=== PATIENT | female | born 1945 | race Caucasian/White ===

== ENCOUNTER 2020-12-22 19:18 | Inpatient (IN) | payer MEDICARE ==
[2020-12-22 20:11] LABS: #Eosinphils 0.1 thou/uL (0.0-0.7); #Lymphocytes 1.6 thou/uL (1.20-3.40); #Monocytes 0.7 thou/uL (0.11-0.59); #Neutrophils 2.1 thou/uL (1.40-6.50); %Basophils 0.6 % (0.0-1.0); %Eosinophils 1.8 % (0.0-10.0); %Lymphocytes 35.7 % (21.0-51.0); %Monocytes 14.8 % (0.0-10.0); %Neutrophils 47.1 % (42.0-75.0); Hemoglobin 14.1 g/dL (12.0-16.0); Mean Corpuscular HGB CONC 34.7 g/dL (32.0-36.0); Mean Corpuscular Hemoglobin 29.6 pg (27.0-31.0); Mean Corpuscular Volume 85.3 fL (78.0-98.0); Mean Platelet Volume 8.7 fL (7.4-10.4); Platelet Count 176 thou/uL (130-400); RBC Distribution Width 12.6 % (11.5-14.5); Red Blood Cell (RBC) Count 4.77 mill/uL (4.20-5.40); White Blood Cell (WBC) Count 4.5 thou/uL (4.8-10.8)
--- NOTE | 2020-12-22 20:14 | RAD ---
CHEST ONE VIEW: 12/22/20 HISTORY: Syncopal episode with fall. COMPARISON: 12/05/20 exam. Heart size within normal limits. There are atherosclerotic changes of the aorta. The lungs are clear of any infiltrates. No rib fractures identified. IMPRESSION: No active intrathoracic disease. POS: RICARDO
[2020-12-22 20:56] LABS: CKMB 1.5 ng/mL (0-6.6)
[2020-12-22 21:16] LABS: Bilirubin Negative (Negative); Blood, Urine Negative (Negative); Clarity Clear (Clear); Glucose, Urine (Dipstick) Normal (Negative); Ketone, Urine Negative (Negative); Leukocyte Negative Leu/uL (Negative); Nitrite Negative (Negative); Protein, Urine (Dipstick) 10 mg/dL (Neg-Trace); Specific Gravity, Urine 1.007 (1.002-1.036); Urobilinogen Normal mg/dL (Less than 2); pH, Urine 6.5 (5.0-9.0)
[2020-12-22 21:18] LABS: ALT (SGPT) 43 U/L (8-55); AST (SGOT) 37 U/L (5-34); Alkaline Phosphatase 110 U/L (40-110); Anion Gap 19 mmol/L (10-20); BUN (Urea Nitrogen) 22 mg/dL (9.8-20.1); Bilirubin, Total 0.8 mg/dL (0.2-1.2); CK (CPK) 67 U/L (29-168); Calc. Creatinine Clearance 0 mL/min (70-130); Calcium 9.4 mg/dL (7.8-10.44); Carbon Dioxide 34 mmol/L (23-31); Chloride 79 mmol/L (98-107); Globulin 3.1 g/dL (2.4-3.5); Glucose 127 mg/dL (83-110); Protein, Total 7.2 g/dL (5.8-8.1); Sodium 129 mmol/L (136-145)
[2020-12-22] MEDS ORDERED: Lorazepam 2 MG/ML VIAL ONE (21:30)
[2020-12-22] MEDS ORDERED: Potassium Chloride 20 MEQ TAB ONE (21:58)
[2020-12-22 23:54] LABS: Troponin I 0.094 ng/mL (< 0.028)
[2020-12-23] MEDS ORDERED: Potassium Chloride 20 MEQ TAB PO SCH (01:00)
--- NOTE | 2020-12-23 07:18 | PDOC.HHP ---
Hospitalist [facility] History of Present Illness: This is a 75-year-old female patient with a history of cholecystitis, who presents with falls and near syncope with hypotension. She was brought in from [facility] where she was discharged today. Of note patient was recently admitted here and discharged to [facility]. Patient had no complaints at the time of evaluation. She was oriented only to self however was not in acute distress. At presentation her blood pressure was 177/87, pulse 72, respirate 20, temperature 98.4 and saturation 94 on room air. Urinalysis was generally negative. Sodium was 129, potassium was 3.0, creatinine was 1.45, glucose 127 troponin was 0.18. WBC showed leukocytosis of 12.5 otherwise unremarkable. She received potassium chloride 20 mEq normal saline 1 L and Ativan. Arrangements were being made to have her transition to rehab however she cannot be seen but because she was recently discharged and needed to be reprocessed. Decision was made for her to be admitted and replaced. Allergies/Adverse Reactions: Allergy/AdvReac Type Severity Reaction Status Date / Time No Known Drug Allergies Allergy Unverified 12/23/20 00:53 Past History: PMHx: PSHx: FHx: Social: Hospitalist Results Result Diagrams: 12/22/20 20:00 12/22/20 20:00 Lab results: Laboratory Last Values WBC 4.5 thou/uL (4.8-10.8) L 12/22/20 20:00 RBC 4.77 mill/uL (4.20-5.40) 12/22/20 20:00 Hgb 14.1 g/dL (12.0-16.0) 12/22/20 20:00 Hct 40.7 % (36.0-47.0) 12/22/20 20:00 MCV 85.3 fL (78.0-98.0) 12/22/20 20:00 MCH 29.6 pg (27.0-31.0) 12/22/20 20:00 MCHC 34.7 g/dL (32.0-36.0) 12/22/20 20:00 RDW 12.6 % (11.5-14.5) 12/22/20 20:00 Plt Count 176 thou/uL (130-400) 12/22/20 20:00 MPV 8.7 fL (7.4-10.4) 12/22/20 20:00 Neutrophils % 47.1 % (42.0-75.0) 12/22/20 20:00 Lymphocytes % 35.7 % (21.0-51.0) 12/22/20 20:00 Monocytes % 14.8 % (0.0-10.0) H 12/22/20 20:00 Eosinophils % 1.8 % (0.0-10.0) 12/22/20 20:00 Basophils % 0.6 % (0.0-1.0) 12/22/20 20:00 Neutrophils # 2.1 thou/uL (1.40-6.50) 12/22/20 20:00 Lymphocytes # 1.6 thou/uL (1.20-3.40) 12/22/20 20:00 Monocytes # 0.7 thou/uL (0.11-0.59) H 12/22/20 20:00 Eosinophils # 0.1 thou/uL (0.0-0.7) 12/22/20 20:00 Basophils # 0.0 thou/uL (0.0-0.2) 12/22/20 20:00 Sodium 129 mmol/L (136-145) L 12/22/20 20:00 Potassium 3.0 mmol/L (3.5-5.1) L 12/22/20 20:00 Chloride 79 mmol/L (98-107) L 12/22/20 20:00 Carbon Dioxide 34 mmol/L (23-31) H 12/22/20 20:00 Anion Gap 19 mmol/L (10-20) 12/22/20 20:00 BUN 22 mg/dL (9.8-20.1) H 12/22/20 20:00 Creatinine 1.45 mg/dL (0.6-1.1) H 12/22/20 20:00 Estimated GFR (MDRD) 35 12/22/20 20:00 Glucose 127 mg/dL (83-110) H 12/22/20 20:00 Lactic Acid 1.5 mmol/L (0.5-2.2) 12/22/20 20:33 Calcium 9.4 mg/dL (7.8-10.44) 12/22/20 20:00 Total Bilirubin 0.8 mg/dL (0.2-1.2) 12/22/20 20:00 AST 37 U/L (5-34) H 12/22/20 20:00 ALT 43 U/L (8-55) 12/22/20 20:00 Alkaline Phosphatase 110 U/L (40-110) 12/22/20 20:00 Creatine Kinase 67 U/L (29-168) 12/22/20 20:00 CK-MB (CK-2) 1.5 ng/mL (0-6.6) 12/22/20 20:00 Troponin I 0.094 ng/mL (< 0.028) H 12/22/20 23:22 Serum Total Protein 7.2 g/dL (5.8-8.1) 12/22/20 20:00 Albumin 4.0 g/dL (3.4-4.8) 12/22/20 20:00 Globulin 3.1 g/dL (2.4-3.5) 12/22/20 20:00 Albumin/Globulin Ratio 1.3 g/dL (1.2-2.2) 12/22/20 20:00 Urine Color Colorless (Yellow) 12/22/20 20:44 Urine Clarity Clear (Clear) 12/22/20 20:44 Urine pH 6.5 (5.0-9.0) 12/22/20 20:44 Ur Specific Shock 1.007 (1.002-1.036) 12/22/20 20:44 Urine Protein 10 mg/dL (Neg-Trace) 12/22/20 20:44 Urine Glucose (UA) Normal mg/dL (Negative) 12/22/20 20:44 Urine Ketones Negative mg/dL (Negative) 12/22/20 20:44 Urine Blood Negative (Negative) 12/22/20 20:44 Urine Nitrite Negative (Negative) 12/22/20 20:44 Urine Bilirubin Negative (Negative) 12/22/20 20:44 Urine Urobilinogen Normal mg/dL (Less than 2) 12/22/20 20:44 Ur Leukocyte Esterase Negative Amrita/uL (Negative) 12/22/20 20:44 Hospitalist H&P A/P Plan: This is a 75-year-old female patient with a history of cholecystitis and dementia recently discharged and brought back from her rehab center on account of hypotension falls and hypokalemia. Syncope Likely orthostatic hypotensionwas positive on assessment. Receiving IV fluidswe will continue Repeat orthostatic vitals in a.m. Monitor on telemetry Consider echocardiogram in a.m. Hypokalemia Unclear etiology Replace calciummonitor magnesium Monitor BMP Dementia DVT prophylaxisLovenox CODE STATUSfull code
[2020-12-23] MEDS: Sodium Chloride 0.9% 1,000 ML IV SCH ×2 (07:28→12:21)
[2020-12-23] MEDS: Enoxaparin Sodium 40 MG/0.4 ML SYRINGE SC SCH (09:19)
[2020-12-23 14:36] LABS: Mean Corpuscular HGB CONC 33.8 g/dL (32.0-36.0); Mean Corpuscular Hemoglobin 29.6 pg (27.0-31.0); Mean Corpuscular Volume 87.5 fL (78.0-98.0); Mean Platelet Volume 8.8 fL (7.4-10.4); Platelet Count 145 thou/uL (130-400); RBC Distribution Width 12.4 % (11.5-14.5); Red Blood Cell (RBC) Count 4.38 mill/uL (4.20-5.40); White Blood Cell (WBC) Count 4.2 thou/uL (4.8-10.8)
[2020-12-23 14:55] LABS: Anion Gap 13 mmol/L (10-20); BUN (Urea Nitrogen) 16 mg/dL (9.8-20.1); Calc. Creatinine Clearance 0 mL/min (70-130); Calcium 8.9 mg/dL (7.8-10.44); Carbon Dioxide 30 mmol/L (23-31); Chloride 90 mmol/L (98-107); Glucose 104 mg/dL (83-110); Magnesium 1.8 mg/dL (1.6-2.6); Sodium 130 mmol/L (136-145)
[2020-12-23 15:05] LABS: Potassium 2.6 mmol/L (3.5-5.1)
[2020-12-23 15:15] LABS: Band 5 % (5-11); Eosinophils 1 % (0-10); Lymphocytes 37 % (21-51); MDiff Complete? YES; Monocytes 19 % (0-10); Neutrophil 32 % (42-75); Platelet Morphology Comment Appears Adequate; Polychromasia SLIGHT = 2-3 cells (100X) (0-2/hpf); Reactive Lymphocytes 6 % (0-10)
[2020-12-23 15:15] LABS: SARS-CoV-2 PCR by NAA Not Detected (NotDetected)
[2020-12-23] MEDS ORDERED: Potassium Chloride 40 MEQ in Sodium Chloride 0.9% 250 ML 250 ML IVPB SCH (15:45)
--- NOTE | 2020-12-23 15:48 | PDOC.HOSPP ---
- Subjective Encounter Date: 12/23/20 Subjective: well appearing but confused. - Objective Vital Signs & Weight: Vital Signs (12 hours) Temp Pulse Resp BP BP BP Pulse Ox 12/23/20 12:00 98.0 F 65 16 158/74 H 100 12/23/20 09:50 175/84 H 175/84 H 12/23/20 08:30 98.8 F 62 14 172/77 H 94 L I&O: 12/22/20 12/23/20 12/24/20 06:59 06:59 06:59 Intake Total 472 Balance 472 Result Diagrams: 12/23/20 14:20 12/23/20 14:20 Hospitalist ROS - Medication Medications: Active Medications Generic Name Dose Route Start Last Admin Trade Name Kunq PRN Reason Stop Dose Admin Enoxaparin Sodium 40 mg 12/23/20 09:00 12/23/20 09:19 Enoxaparin Sodium 40 Mg/0.4 Ml Syringe SC 40 mg 0900 QUENTIN Administration Sodium Chloride 1,000 mls @ 100 mls/hr 12/23/20 01:00 12/23/20 12:21 Normal Saline 0.9% IV 1,000 mls .Q10H QUENTIN Administration Potassium Chloride 40 meq 12/23/20 01:00 12/23/20 07:27 Potassium Chloride 20 Meq Tab PO 12/23/20 04:00 Not Given NOW [facility] Hospitalist Exam Vitals: Vital Signs (12 hours) Temp Pulse Resp BP BP BP Pulse Ox 12/23/20 12:00 98.0 F 65 16 158/74 H 100 12/23/20 09:50 175/84 H 175/84 H 12/23/20 08:30 98.8 F 62 14 172/77 H 94 L General Appearance: NAD (confused) Eye: PERRL ENT: normocephalic atraumatic Neck: supple, symmetric Heart: RRR, no murmur, no gallops Respiratory: CTAB, no wheezes, no rales, no ronchi Gastrointestinal: soft, non-tender, non-distended, normal bowel sounds, no palpable masses, no hepatomegaly Extremities: no cyanosis, no clubbing, no edema Skin: normal turgor, no lesions Neurological: cranial nerve grossly intact, normal sensation to touch Musculoskeletal: normal tone, normal strength Psychiatric: normal affect, normal behavior, A&O x 3 Hosp A/P (1) Dementia Code(s): F03.90 - UNSPECIFIED DEMENTIA WITHOUT BEHAVIORAL DISTURBANCE Status: Acute (2) Seizure-like activity Code(s): R56.9 - UNSPECIFIED CONVULSIONS Status: Acute (3) Dehydration Code(s): E86.0 - DEHYDRATION Status: Acute (4) Orthostasis Code(s): I95.1 - ORTHOSTATIC HYPOTENSION Status: Acute (5) Hypertension Code(s): I10 - ESSENTIAL (PRIMARY) HYPERTENSION Status: Acute (6) Hypokalemia Code(s): E87.6 - HYPOKALEMIA Status: Acute - Plan plan for today 12/23 I reviewed [facility] records, patient had labile hypertension and orthostasit hypotension, she was started on HCTZ and spironolactone, on admission her cr was up and now normalizing but still hypokalemia, she remains orthostatic, will continue hydrating her and recheck her labs in am.I did replace her K. will make further adjustments as per her clinical progression. I will resume her lamictal and zyprexa as she was on those in the [facility]. Her trop indicating most likely demand ischemia, will recheck in am.
[2020-12-23 19:45] VITALS: BMI 28.3
[2020-12-23] MEDS: OLANZapine 5 MG TAB PO SCH (20:10)
[2020-12-24] MEDS: Sodium Chloride 0.9% 1,000 ML IV SCH ×2 (01:29→07:19)
[2020-12-24 05:29] LABS: #Basophils 0.1 thou/uL (0.0-0.2); #Eosinphils 0.2 thou/uL (0.0-0.7); #Lymphocytes 2.1 thou/uL (1.20-3.40); #Monocytes 0.5 thou/uL (0.11-0.59); #Neutrophils 1.4 thou/uL (1.40-6.50); %Basophils 2.4 % (0.0-1.0); %Eosinophils 4.9 % (0.0-10.0); %Lymphocytes 47.9 % (21.0-51.0); %Monocytes 12.4 % (0.0-10.0); %Neutrophils 32.5 % (42.0-75.0); Mean Corpuscular HGB CONC 34.7 g/dL (32.0-36.0); Mean Corpuscular Volume 86.6 fL (78.0-98.0); Mean Platelet Volume 8.9 fL (7.4-10.4); Platelet Count 158 thou/uL (130-400); RBC Distribution Width 12.5 % (11.5-14.5); White Blood Cell (WBC) Count 4.3 thou/uL (4.8-10.8)
[2020-12-24 06:01] LABS: Anion Gap 12 mmol/L (10-20); BUN (Urea Nitrogen) 11 mg/dL (9.8-20.1); Calc. Creatinine Clearance 45 mL/min (70-130); Calcium 8.7 mg/dL (7.8-10.44); Carbon Dioxide 32 mmol/L (23-31); Chloride 96 mmol/L (98-107); Glucose 86 mg/dL (83-110); Sodium 138 mmol/L (136-145)
[2020-12-24 06:03] LABS: Potassium 2.4 mmol/L (3.5-5.1)
[2020-12-24] MEDS ORDERED: Electrolyte Replacement Protocol FS PRN (06:45)
[2020-12-24] MEDS: Potassium Chloride 40 MEQ in Sodium Chloride 0.9% 250 ML 250 ML IVPB SCH ×2 (07:11→12:30)
[2020-12-24] MEDS ORDERED: Potassium Chloride 20 MEQ in Premix Bag 1 BAG IVPB SCH (09:00)
[2020-12-24] MEDS: Enoxaparin Sodium 40 MG/0.4 ML SYRINGE SC SCH (09:16)
[2020-12-24] MEDS: lamoTRIgine 100 MG TAB PO SCH (09:16)
--- NOTE | 2020-12-24 13:27 | PDOC.HOSPP ---
- Subjective Subjective: continues to be confused - Objective Vital Signs & Weight: Vital Signs (12 hours) Temp Pulse Resp BP BP Pulse Ox 12/24/20 08:00 98.3 F 75 20 134/63 196/86 H 98 12/24/20 04:00 99.3 F 62 12 144/67 H 97 Weight Weight 140 lb I&O: 12/23/20 12/24/20 12/25/20 06:59 06:59 06:59 Intake Total 472 3780 Balance 472 3780 Result Diagrams: 12/24/20 04:50 12/24/20 04:50 Hospitalist ROS - Medication Medications: Active Medications Generic Name Dose Route Start Last Admin Trade Name Freq PRN Reason Stop Dose Admin Enoxaparin Sodium 40 mg 12/23/20 09:00 12/24/20 09:16 Enoxaparin Sodium 40 Mg/0.4 Ml Syringe SC 40 mg 0900 QUENTIN Administration Potassium Chloride 40 meq/ 270 mls @ 67.5 mls/hr 12/24/20 07:15 12/24/20 12:30 Sodium Chloride IVPB 12/24/20 15:14 270 mls Q4H QUENTIN Administration Lamotrigine 100 mg 12/24/20 09:00 12/24/20 09:16 Lamotrigine 100 Mg Tab PO 100 mg DAILY QUENTIN Administration Olanzapine 5 mg 12/23/20 21:00 12/23/20 20:10 Olanzapine 5 Mg Tab PO 5 mg HS QUENTIN Administration Potassium Chloride 40 meq 12/23/20 01:00 12/23/20 07:27 Potassium Chloride 20 Meq Tab PO 12/23/20 04:00 Not Given NOW QUENTIN Sodium Chloride 10 ml 12/24/20 09:00 12/24/20 09:16 Flush - Normal Saline 10 Ml Syringe IVF Not Given Q12HR [facility] Hospitalist Exam Vitals: Vital Signs (12 hours) Temp Pulse Resp BP BP Pulse Ox 12/24/20 08:00 98.3 F 75 20 134/63 196/86 H 98 12/24/20 04:00 99.3 F 62 12 144/67 H 97 Weight Weight 140 lb General Appearance: NAD, awake alert Eye: PERRL ENT: normocephalic atraumatic Neck: supple, symmetric, no JVD Heart: RRR, no murmur, no gallops Respiratory: CTAB, no wheezes, no rales Gastrointestinal: soft, non-tender, non-distended Extremities: no cyanosis, no clubbing, no edema Skin: normal turgor, no lesions Hosp A/P (1) Dementia Code(s): F03.90 - UNSPECIFIED DEMENTIA WITHOUT BEHAVIORAL DISTURBANCE Status: Acute (2) Seizure-like activity Code(s): R56.9 - UNSPECIFIED CONVULSIONS Status: Acute (3) Dehydration Code(s): E86.0 - DEHYDRATION Status: Acute (4) Orthostasis Code(s): I95.1 - ORTHOSTATIC HYPOTENSION Status: Acute (5) Hypertension Code(s): I10 - ESSENTIAL (PRIMARY) HYPERTENSION Status: Acute (6) Hypokalemia Code(s): E87.6 - HYPOKALEMIA Status: Acute - Plan plan for today 12/23 I reviewed [facility] records, patient had labile hypertension and orthostasit hypotension, she was started on HCTZ and spironolactone, on admission her cr was up and now normalizing but still hypokalemia, she remains orthostatic, will continue hydrating her and recheck her labs in am.I did replace her K. will make further adjustments as per her clinical progression. I will resume her lamictal and zyprexa [facility]. Her trop indicating most likely demand ischemia, will recheck in am. plan for today 12/24 seems that patient was her on 12/06/20 for similar presentation and did well on amlodipine 2.5 mg, but when at rehab more meds were added, I plan to start her on Toprol XL today and amlodipine tomorrow and see how she does as her BP still very elevated when lying flat and drops by 15 mmhg when sitting up, so I will target a SBP of around 160 lying down. we still replenishing her K and Mg. her last echocardiogram showed and EF of 65-70 % and LVH. I will stop her IVF since she is eating ok.
[2020-12-24 19:46] LABS: Calcium 8.5 mg/dL (7.8-10.44); Chloride 98 mmol/L (98-107); Potassium 3.5 mmol/L (3.5-5.1); Sodium 132 mmol/L (136-145)
[2020-12-24] MEDS: OLANZapine 5 MG TAB PO SCH (20:01)
[2020-12-24 20:03] LABS: Anion Gap 20 mmol/L (10-20); BUN (Urea Nitrogen) 12 mg/dL (9.8-20.1); Calc. Creatinine Clearance 45 mL/min (70-130); Carbon Dioxide 19 mmol/L (23-31); Glucose 104 mg/dL (83-110)
[2020-12-24] MEDS: hydrALAZINE 20 MG/ML VIAL SLOW IVP PRN (21:43)
[2020-12-25 05:12] LABS: #Eosinphils 0.3 thou/uL (0.0-0.7); #Lymphocytes 2.4 thou/uL (1.20-3.40); #Monocytes 0.6 thou/uL (0.11-0.59); #Neutrophils 2.6 thou/uL (1.40-6.50); %Basophils 0.5 % (0.0-1.0); %Eosinophils 5.2 % (0.0-10.0); %Lymphocytes 40.2 % (21.0-51.0); %Monocytes 10.3 % (0.0-10.0); %Neutrophils 43.9 % (42.0-75.0); Hemoglobin 12.6 g/dL (12.0-16.0); Mean Corpuscular HGB CONC 33.5 g/dL (32.0-36.0); Mean Corpuscular Hemoglobin 29.2 pg (27.0-31.0); Mean Corpuscular Volume 87.2 fL (78.0-98.0); Mean Platelet Volume 8.7 fL (7.4-10.4); Platelet Count 178 thou/uL (130-400); RBC Distribution Width 12.8 % (11.5-14.5); Red Blood Cell (RBC) Count 4.32 mill/uL (4.20-5.40)
[2020-12-25 05:34] LABS: Anion Gap 15 mmol/L (10-20); BUN (Urea Nitrogen) 13 mg/dL (9.8-20.1); Calc. Creatinine Clearance 48 mL/min (70-130); Calcium 8.7 mg/dL (7.8-10.44); Carbon Dioxide 27 mmol/L (23-31); Chloride 98 mmol/L (98-107); Glucose 99 mg/dL (83-110); Magnesium 1.5 mg/dL (1.6-2.6); Sodium 137 mmol/L (136-145)
[2020-12-25 05:39] LABS: Potassium 2.5 mmol/L (3.5-5.1)
[2020-12-25] MEDS: Potassium Chloride 20 MEQ TAB PO SCH ×2 (06:32→10:22)
[2020-12-25] MEDS ORDERED: Amlodipine 5 MG TAB PO SCH (09:00)
[2020-12-25] MEDS ORDERED: Magnesium 2 GM/50 ML 2 GM in Premix Bag 1 BAG IVPB SCH (09:00)
--- NOTE | 2020-12-25 09:30 | PDOC.HOSPP ---
- Subjective Encounter Date: 12/25/20 Subjective: in no acute distress, always asking for water - Objective Vital Signs & Weight: Vital Signs (12 hours) Temp Pulse Resp BP Pulse Ox 12/25/20 03:42 98.1 F 66 14 147/70 H 99 12/24/20 23:48 98.4 F 78 20 143/73 H 94 L 12/24/20 21:43 79 Weight Weight 140 lb I&O: 12/24/20 12/25/20 12/26/20 06:59 06:59 06:59 Intake Total 3780 400 Output Total 692 Balance 3780 -292 Result Diagrams: 12/25/20 04:30 12/25/20 04:29 Hospitalist ROS - Medication Medications: Active Medications Generic Name Dose Route Start Last Admin Trade Name Freq PRN Reason Stop Dose Admin Enoxaparin Sodium 40 mg 12/23/20 09:00 12/24/20 09:16 Enoxaparin Sodium 40 Mg/0.4 Ml Syringe SC 40 mg 0900 QUENTIN Administration Hydralazine HCl 5 mg 12/24/20 13:14 12/24/20 21:43 Hydralazine 20 Mg/Ml Vial SLOW IVP 5 mg Q6H PRN Administration Hypertension Lamotrigine 100 mg 12/24/20 09:00 12/24/20 09:16 Lamotrigine 100 Mg Tab PO 100 mg DAILY QUENTIN Administration Olanzapine 5 mg 12/23/20 21:00 12/24/20 20:01 Olanzapine 5 Mg Tab PO 5 mg HS QUENTIN Administration Potassium Chloride 40 meq 12/23/20 01:00 12/23/20 07:27 Potassium Chloride 20 Meq Tab PO 12/23/20 04:00 Not Given NOW QUENTIN Potassium Chloride 40 meq 12/25/20 06:30 12/25/20 06:32 Potassium Chloride 20 Meq Tab PO 12/25/20 10:31 40 meq Q4H QUENTIN Administration Sodium Chloride 10 ml 12/24/20 09:00 12/24/20 20:02 Flush - Normal Saline 10 Ml Syringe IVF 10 ml Q12HR QUENTIN Administration Hospitalist Exam Vitals: Vital Signs (12 hours) Temp Pulse Resp BP Pulse Ox 12/25/20 03:42 98.1 F 66 14 147/70 H 99 12/24/20 23:48 98.4 F 78 20 143/73 H 94 L 12/24/20 21:43 79 Weight Weight 140 lb General Appearance: NAD, awake alert Eye: PERRL, anicteric sclera ENT: normocephalic atraumatic, no oropharyngeal lesions Neck: supple, symmetric, no JVD Heart: RRR, no murmur, no gallops Respiratory: CTAB, no wheezes, no rales Gastrointestinal: soft, non-tender Extremities: no cyanosis, no clubbing Hosp A/P (1) Dementia Code(s): F03.90 - UNSPECIFIED DEMENTIA WITHOUT BEHAVIORAL DISTURBANCE Status: Acute (2) Seizure-like activity Code(s): R56.9 - UNSPECIFIED CONVULSIONS Status: Acute (3) Dehydration Code(s): E86.0 - DEHYDRATION Status: Acute (4) Orthostasis Code(s): I95.1 - ORTHOSTATIC HYPOTENSION Status: Acute (5) Hypertension Code(s): I10 - ESSENTIAL (PRIMARY) HYPERTENSION Status: Acute (6) Hypokalemia Code(s): E87.6 - HYPOKALEMIA Status: Acute - Plan plan for today 12/23 I reviewed [facility] records, patient had labile hypertension and orthostasit hypotension, she was started on HCTZ and spironolactone, on admission her cr was up and now normalizing but still hypokalemia, she remains orthostatic, will continue hydrating her and recheck her labs in am.I did replace her K. will make further adjustments as per her clinical progression. I will resume her lamictal and zyprexa as she was on those in the detention. Her trop indicating most likely demand ischemia, will recheck in am. plan for today 12/24 seems that patient was her on 12/06/20 for similar presentation and did well on amlodipine 2.5 mg, but when at rehab more meds were added, I plan to start her on Toprol XL today and amlodipine tomorrow and see how she does as her BP still very elevated when lying flat and drops by 15 mmhg when sitting up, so I will target a SBP of around 160 lying down. we still replenishing her K and Mg. her last echocardiogram showed and EF of 65-70 % and LVH. I will stop her IVF since she is eating ok. plan for today 2 overnight ( as per RN ) she was agitated, always asking for water.I will add Seroquel at HS for agitation. we measured her vitals and her SBP dropped from 163 ( laying flat ) to 125 ( sitting ) to 71 ( standing ), when she was standing she became dizzy, I plan to stop Toprol and start her Norvasc at night instead of the day. will ask PT to see her and use a binder with ambulation. Her trop has been always indeterminate even during her previous admission, most likely demand ischemia. I will start her on daily dose of K and magnesium as they are always low.
[2020-12-25] MEDS: Enoxaparin Sodium 40 MG/0.4 ML SYRINGE SC SCH (10:20)
[2020-12-25] MEDS: lamoTRIgine 100 MG TAB PO SCH (10:23)
[2020-12-25] MEDS ORDERED: Lorazepam 2 MG/ML VIAL SLOW IVP PRN (15:40)
[2020-12-25] MEDS: OLANZapine 5 MG TAB PO SCH (20:26)
[2020-12-25] MEDS: Amlodipine 5 MG TAB PO SCH (20:27)
[2020-12-25] MEDS: Magnesium Oxide 400 MG TAB PO SCH (20:28)
[2020-12-26 05:35] LABS: Anion Gap 14 mmol/L (10-20); BUN (Urea Nitrogen) 10 mg/dL (9.8-20.1); Calc. Creatinine Clearance 49 mL/min (70-130); Calcium 9.1 mg/dL (7.8-10.44); Carbon Dioxide 26 mmol/L (23-31); Chloride 99 mmol/L (98-107); Glucose 89 mg/dL (83-110); Magnesium 2.2 mg/dL (1.6-2.6); Potassium 3.2 mmol/L (3.5-5.1); Sodium 136 mmol/L (136-145)
[2020-12-26 06:08] LABS: Eosinophils 5 % (0-10); Lymphocytes 41 % (21-51); MDiff Complete? YES; Mean Corpuscular HGB CONC 34.3 g/dL (32.0-36.0); Mean Corpuscular Hemoglobin 29.9 pg (27.0-31.0); Mean Corpuscular Volume 87.2 fL (78.0-98.0); Mean Platelet Volume 8.2 fL (7.4-10.4); Monocytes 8 % (0-10); Neutrophil 46 % (42-75); Platelet Count 193 thou/uL (130-400); Platelet Morphology Comment Appears Adequate; RBC Distribution Width 12.9 % (11.5-14.5); Red Blood Cell (RBC) Count 4.33 mill/uL (4.20-5.40); White Blood Cell (WBC) Count 5.6 thou/uL (4.8-10.8)
[2020-12-26] MEDS ORDERED: Potassium Chloride 20 MEQ TAB PO SCH (09:30)
[2020-12-26] MEDS: lamoTRIgine 100 MG TAB PO SCH (09:45)
[2020-12-26] MEDS: Magnesium Oxide 400 MG TAB PO SCH ×2 (09:45→20:01)
[2020-12-26] MEDS: Enoxaparin Sodium 40 MG/0.4 ML SYRINGE SC SCH (09:45)
[2020-12-26] MEDS: Potassium Chloride 20 MEQ TAB PO SCH (09:45)
[2020-12-26] MEDS: hydrALAZINE 20 MG/ML VIAL SLOW IVP PRN (12:36)
[2020-12-26 14:02] LABS: Potassium 3.5 mmol/L (3.5-5.1)
[2020-12-26] MEDS: OLANZapine 5 MG TAB PO SCH (20:01)
[2020-12-26] MEDS: Amlodipine 5 MG TAB PO SCH (20:01)
--- NOTE | 2020-12-26 20:40 | PDOC.HOSPP ---
- Subjective Encounter Date: 12/26/20 Subjective: confused but otherwise comfortable - Objective Vital Signs & Weight: Vital Signs (12 hours) Temp Pulse Pulse Resp BP BP BP 12/26/20 20:01 85 12/26/20 16:00 97.8 F 85 18 138/72 104/59 L 12/26/20 12:36 76 12/26/20 12:00 154/83 H 102/56 L 12/26/20 09:55 70 152/77 H BP Pulse Ox Pulse Ox 12/26/20 20:01 12/26/20 16:00 184/87 H 100 12/26/20 12:36 12/26/20 12:00 178/77 H 12/26/20 09:55 96 Weight Weight 140 lb I&O: 12/25/20 12/26/20 12/27/20 06:59 06:59 06:59 Intake Total 400 300 200 Output Total 692 1040 400 Balance -292 -740 -200 Result Diagrams: 12/26/20 04:50 12/26/20 13:38 Hospitalist ROS - Medication Medications: Active Medications Generic Name Dose Route Start Last Admin Trade Name Freq PRN Reason Stop Dose Admin Amlodipine Besylate 2.5 mg 12/25/20 21:00 12/26/20 20:01 Amlodipine 5 Mg Tab PO 2.5 mg HS QUENTIN Administration Enoxaparin Sodium 40 mg 12/23/20 09:00 12/26/20 09:45 Enoxaparin Sodium 40 Mg/0.4 Ml Syringe SC 40 mg 0900 QUENTIN Administration Hydralazine HCl 5 mg 12/24/20 13:14 12/26/20 12:36 Hydralazine 20 Mg/Ml Vial SLOW IVP 5 mg Q6H PRN Administration Hypertension Lamotrigine 100 mg 12/24/20 09:00 12/26/20 09:45 Lamotrigine 100 Mg Tab PO 100 mg DAILY QUENTIN Administration Lorazepam 0.5 mg 12/25/20 15:40 12/25/20 16:23 Lorazepam 2 Mg/Ml Vial SLOW IVP 0.5 mg Q6H PRN Administration Anxiety/Agitation Magnesium Oxide 400 mg 12/25/20 21:00 12/26/20 20:01 Magnesium Oxide 400 Mg Tab PO 400 mg BID QUENTIN Administration Olanzapine 5 mg 12/23/20 21:00 12/26/20 20:01 Olanzapine 5 Mg Tab PO 5 mg HS QUENTIN Administration Potassium Chloride 40 meq 12/23/20 01:00 12/23/20 07:27 Potassium Chloride 20 Meq Tab PO 12/23/20 04:00 Not Given NOW QUENTIN Potassium Chloride 40 meq 12/26/20 09:00 12/26/20 09:45 Potassium Chloride 20 Meq Tab PO 40 meq 0900 QUENTIN Administration Quetiapine Fumarate 25 mg 12/25/20 21:00 12/26/20 20:01 Quetiapine Fumarate 25 Mg Tab PO 25 mg HS QUENTIN Administration Sodium Chloride 10 ml 12/24/20 09:00 12/26/20 20:15 Flush - Normal Saline 10 Ml Syringe IVF 10 ml Q12HR QUENTIN Administration Hospitalist Exam Vitals: Vital Signs (12 hours) Temp Pulse Pulse Resp BP BP BP 12/26/20 20:01 85 12/26/20 16:00 97.8 F 85 18 138/72 104/59 L 12/26/20 12:36 76 12/26/20 12:00 154/83 H 102/56 L 12/26/20 09:55 70 152/77 H BP Pulse Ox Pulse Ox 12/26/20 20:01 12/26/20 16:00 184/87 H 100 12/26/20 12:36 12/26/20 12:00 178/77 H 12/26/20 09:55 96 Weight Weight 140 lb Eye: PERRL ENT: normocephalic atraumatic Neck: supple, symmetric Heart: RRR, no murmur Respiratory: CTAB, no wheezes Gastrointestinal: soft, non-tender, non-distended Hosp A/P (1) Dementia Code(s): F03.90 - UNSPECIFIED DEMENTIA WITHOUT BEHAVIORAL DISTURBANCE Status: Acute (2) Seizure-like activity Code(s): R56.9 - UNSPECIFIED CONVULSIONS Status: Acute (3) Dehydration Code(s): E86.0 - DEHYDRATION Status: Acute (4) Orthostasis Code(s): I95.1 - ORTHOSTATIC HYPOTENSION Status: Acute (5) Hypertension Code(s): I10 - ESSENTIAL (PRIMARY) HYPERTENSION Status: Acute (6) Hypokalemia Code(s): E87.6 - HYPOKALEMIA Status: Acute - Plan plan for today 2/3 I reviewed [facility] records, patient had labile hypertension and orthostasit hypotension, she was started on HCTZ and spironolactone, on admission her cr was up and now normalizing but still hypokalemia, she remains orthostatic, will continue hydrating her and recheck her labs in am.I did replace her K. will make further adjustments as per her clinical progression. I will resume her lamictal and zyprexa as she was on those in the [facility]. Her trop indicating most likely demand ischemia, will recheck in am. plan for today 2 seems that patient was her on 12/06/20 for similar presentation and did well on a mlodipine 2.5 mg, but when at rehab more meds were added, I plan to start her on Toprol XL today and amlodipine tomorrow and see how she does as her BP still very elevated when lying flat and drops by 15 mmhg when sitting up, so I will target a SBP of around 160 lying down. we still replenishing her K and Mg. her last echocardiogram showed and EF of 65-70 % and LVH. I will stop her IVF since she is eating ok. plan for today 2/ overnight ( as per RN ) she was agitated, always asking for water.I will add Seroquel at HS for agitation. we measured her vitals and her SBP dropped from 163 ( laying flat ) to 125 ( sitting ) to 71 ( standing ), when she was standing she became dizzy, I plan to stop Toprol and start her Norvasc at night instead of the day. will ask PT to see her and use a binder with ambulation. Her trop has been always indeterminate even during her previous admission, most likely demand ischemia. I will start her on daily dose of K and magnesium as they are always low. plan for today 2/ she remains orthostatic but to a lesser extent. 178/77 154/83 102/56 I will start her on a low dose midodrine and see how she does with that.
[2020-12-27] MEDS: Midodrine HCl 5 MG TAB PO SCH ×4 (00:46→21:08)
[2020-12-27 06:37] LABS: Anion Gap 13 mmol/L (10-20); BUN (Urea Nitrogen) 11 mg/dL (9.8-20.1); Calc. Creatinine Clearance 46 mL/min (70-130); Calcium 9.3 mg/dL (7.8-10.44); Carbon Dioxide 28 mmol/L (23-31); Chloride 100 mmol/L (98-107); Glucose 91 mg/dL (83-110); Magnesium 2.3 mg/dL (1.6-2.6); Potassium 3.3 mmol/L (3.5-5.1); Sodium 138 mmol/L (136-145)
[2020-12-27] MEDS: Potassium Chloride 20 MEQ TAB PO SCH (09:11)
[2020-12-27] MEDS: Enoxaparin Sodium 40 MG/0.4 ML SYRINGE SC SCH (09:11)
[2020-12-27] MEDS: Magnesium Oxide 400 MG TAB PO SCH ×2 (09:12→21:04)
[2020-12-27] MEDS: lamoTRIgine 100 MG TAB PO SCH (09:12)
[2020-12-27] MEDS ORDERED: Potassium Chloride 20 MEQ TAB PO SCH (11:00)
--- NOTE | 2020-12-27 15:45 | PDOC.HOSPP ---
- Subjective Subjective: well appearing - Objective Vital Signs & Weight: Vital Signs (12 hours) Temp Pulse Resp BP BP BP BP 12/27/20 08:00 98.1 F 85 20 159/78 H 120/56 L 184/92 H 12/27/20 04:00 97.0 F L 72 16 159/75 H Pulse Ox 12/27/20 08:00 98 12/27/20 04:00 94 L Weight Weight 140 lb I&O: 12/26/20 12/27/20 12/28/20 06:59 06:59 06:59 Intake Total 300 350 Output Total 1040 700 Balance -740 -350 Result Diagrams: 12/26/20 04:50 12/27/20 05:18 Hospitalist ROS - Medication Medications: Active Medications Generic Name Dose Route Start Last Admin Trade Name Freq PRN Reason Stop Dose Admin Amlodipine Besylate 2.5 mg 12/25/20 21:00 12/26/20 20:01 Amlodipine 5 Mg Tab PO 2.5 mg HS QUENTIN Administration Enoxaparin Sodium 40 mg 12/23/20 09:00 12/27/20 09:11 Enoxaparin Sodium 40 Mg/0.4 Ml Syringe SC 40 mg 0900 QUENTIN Administration Hydralazine HCl 5 mg 12/24/20 13:14 12/26/20 12:36 Hydralazine 20 Mg/Ml Vial SLOW IVP 5 mg Q6H PRN Administration Hypertension Lamotrigine 100 mg 12/24/20 09:00 12/27/20 09:12 Lamotrigine 100 Mg Tab PO 100 mg DAILY QUENTIN Administration Lorazepam 0.5 mg 12/25/20 15:40 12/25/20 16:23 Lorazepam 2 Mg/Ml Vial SLOW IVP 0.5 mg Q6H PRN Administration Anxiety/Agitation Magnesium Oxide 400 mg 12/25/20 21:00 12/27/20 09:12 Magnesium Oxide 400 Mg Tab PO 400 mg BID QUENTIN Administration Midodrine 2.5 mg 12/26/20 21:00 12/27/20 09:12 Midodrine Hcl 5 Mg Tab PO 2.5 mg TID QUENTIN Administration Olanzapine 5 mg 12/23/20 21:00 12/26/20 20:01 Olanzapine 5 Mg Tab PO 5 mg HS QUENTIN Administration Potassium Chloride 40 meq 12/23/20 01:00 12/23/20 07:27 Potassium Chloride 20 Meq Tab PO 12/23/20 04:00 Not Given NOW QUENTIN Potassium Chloride 40 meq 12/26/20 09:00 12/27/20 09:11 Potassium Chloride 20 Meq Tab PO 40 meq 0900 QUENTIN Administration Quetiapine Fumarate 25 mg 12/25/20 21:00 12/26/20 20:01 Quetiapine Fumarate 25 Mg Tab PO 25 mg HS QUENTIN Administration Sodium Chloride 10 ml 12/24/20 09:00 12/27/20 09:53 Flush - Normal Saline 10 Ml Syringe IVF 10 ml Q12HR QUENTIN Administration Hospitalist Exam Vitals: Vital Signs (12 hours) Temp Pulse Resp BP BP BP BP 12/27/20 08:00 98.1 F 85 20 159/78 H 120/56 L 184/92 H 12/27/20 04:00 97.0 F L 72 16 159/75 H Pulse Ox 12/27/20 08:00 98 12/27/20 04:00 94 L Weight Weight 140 lb General Appearance: NAD Eye: PERRL, anicteric sclera ENT: normocephalic atraumatic, no oropharyngeal lesions Neck: supple, symmetric, no JVD, no thyromegaly Heart: RRR, no murmur, no gallops, no rubs, normal peripheral pulses Respiratory: CTAB, no wheezes, no rales Gastrointestinal: soft, non-tender, non-distended Extremities: no cyanosis, no clubbing Skin: normal turgor Hosp A/P (1) Dementia Code(s): F03.90 - UNSPECIFIED DEMENTIA WITHOUT BEHAVIORAL DISTURBANCE Status: Acute (2) Seizure-like activity Code(s): R56.9 - UNSPECIFIED CONVULSIONS Status: Acute (3) Dehydration Code(s): E86.0 - DEHYDRATION Status: Acute (4) Orthostasis Code(s): I95.1 - ORTHOSTATIC HYPOTENSION Status: Acute (5) Hypertension Code(s): I10 - ESSENTIAL (PRIMARY) HYPERTENSION Status: Acute (6) Hypokalemia Code(s): E87.6 - HYPOKALEMIA Status: Acute - Plan plan for today / I reviewed [facility] records, patient had labile hypertension and orthostasit hypotension, she was started on HCTZ and spironolactone, on admission her cr was up and now normalizing but still hypokalemia, she remains orthostatic, will continue hydrating her and recheck her labs in am.I did replace her K. will make further adjustments as per her clinical progression. I will resume her lamictal and zyprexa as she was on those in the intermediate. Her trop indicating most likely demand ischemia, will recheck in am. plan for today 2 seems that patient was her on 12/06/20 for similar presentation and did well on amlodipine 2.5 mg, but when at rehab more meds were added, I plan to start her on Toprol XL today and amlodipine tomorrow and see how she does as her BP still very elevated when lying flat and drops by 15 mmhg when sitting up, so I will target a SBP of around 160 lying down. we still replenishing her K and Mg. her last echocardiogram showed and EF of 65-70 % and LVH. I will stop her IVF since she is eating ok. plan for today 2 overnight ( as per RN ) she was agitated, always asking for water.I will add Seroquel at HS for agitation. we measured her vitals and her SBP dropped from 163 ( laying flat ) to 125 ( sitting ) to 71 ( standing ), when she was standing she became dizzy, I plan to stop Toprol and start her Norvasc at night instead of the day. will ask PT to see her and use a binder with ambulation. Her trop has been always indeterminate even during her previous admission, most likely demand ischemia. I will start her on daily dose of K and magnesium as they are always low. plan for today 2 she remains orthostatic but to a lesser extent. 178/77 154/83 102/56 I will start her on a low dose midodrine and see how she does with that. plan for today 2 her orthostasis is better with midodrine, when she stood up her SBP was 120 and she did not feel dizzy. She is on a daily dose of K, will recheck it in am and adjust. will continue same management awaiting that we find a placement for her.
[2020-12-27] MEDS: Acetaminophen 325 MG TAB PO PRN (21:04)
[2020-12-27] MEDS: Amlodipine 5 MG TAB PO SCH (21:04)
[2020-12-27] MEDS: OLANZapine 5 MG TAB PO SCH (21:05)
[2020-12-28 07:05] LABS: Potassium 4.5 mmol/L (3.5-5.1)
[2020-12-28] MEDS: Enoxaparin Sodium 40 MG/0.4 ML SYRINGE SC SCH (10:43)
[2020-12-28] MEDS: Midodrine HCl 5 MG TAB PO SCH ×3 (10:44→22:48)
[2020-12-28] MEDS: Potassium Chloride 20 MEQ TAB PO SCH (10:44)
[2020-12-28] MEDS: lamoTRIgine 100 MG TAB PO SCH (10:44)
[2020-12-28] MEDS: Magnesium Oxide 400 MG TAB PO SCH ×2 (10:44→22:45)
--- NOTE | 2020-12-28 15:10 | PDOC.DS.DS ---
Provider Date of Admission: 12/23/20 13:37 Date of Discharge: 12/28/20 Admitting Provider: Francesco Singh MD Primary Care Physician: Unknown Course Hospital Course: This is a 75-year-old female patient with a history of cholecystitis, who presents with falls and near syncope with hypotension. She was brought in from [facility] rehab where she was discharged today. Of note patient was recently admitted here and discharged to [facility]. Patient had no complaints at the time of evaluation. She was oriented only to self however was not in acute distress. At presentation her blood pressure was 177/87, pulse 72, respirate 20, temperature 98.4 and saturation 94 on room air. Urinalysis was generally negative. Sodium was 129, potassium was 3.0, creatinine was 1.45, glucose 127 troponin was 0.18. WBC showed leukocytosis of 12.5 otherwise unremarkable. She received potassium chloride 20 mEq normal saline 1 L and Ativan. Arrangements were being made to have her transition to rehab however she cannot be seen but because she was recently discharged and needed to be reprocessed. Decision was made for her to be admitted and replaced. During her stay she was restarted on Norvasc and Toprol but she remained o rthostatic and was very symptomatic when she stands up with a systolic of around 100 she feels that she is dizzy, at some point she had erratic behavior so she was restarted on olanzapine and she was started on Seroquel, she required as needed Ativan. She remained orthostatic so Toprol was stopped Norvasc was reduced and midodrine was added, this helped her blood pressure quite a bit, she is a person who will have a high blood pressure while laying in bed but drops significantly when she stands up, the goal is to have her blood pressure as managed as possible which for the past 24 hours laying flat on her back her blood pressure has been around systolic of 150-1 60 when she stands up it drops to 124 and she is not symptomatic with that, with those numbers when she goes back to inpatient rehab she would not have episodes of syncope or near syncope. I recommended her having a binder when she stands up also stocking hose to prevent significant drop in her blood pressure as an added precautionary measure On a daily basis her potassium was low so she was started on a maintenance dose of potassium. Initially her troponin was abnormal, I did review her previous admissions and her troponin was always abnormal, most likely this is due to demand ischemia, she was monitored on telemetry during all her stay. Patient has been stable for the past 24 hours I will release her to inpatient rehab. Lab Results: 12/26/20 04:50 12/28/20 06:19 Abnormal Lab Results - Last 48 hrs 12/27/20 05:18: Potassium 3.3 L Microbiology - Entire Visit 12/22/20 20:33 Venous blood - Left Arm Blood Culture - Final NO GROWTH IN 5 DAYS 12/22/20 20:33 Venous blood - Right Hand Blood Culture - Final NO GROWTH IN 5 DAYS 12/22/20 20:44 Urine Straight Catheter Urine Culture - Final NO GROWTH AT 36 HOURS Vitals: Vital Signs (12 hours) Temp Pulse Resp BP BP BP BP 12/28/20 11:45 98.6 F 85 18 159/90 H 12/28/20 08:00 97.7 F 71 16 133/71 126/68 159/72 H 12/28/20 04:00 97.6 F 61 16 140/67 Pulse Ox 12/28/20 11:45 95 12/28/20 08:00 98 12/28/20 04:00 93 L Weight Weight 140 lb Physical Exam: The patient was seen and examined on the day of discharge. General Appearance: NAD, awake alert Eye: PERRL, anicteric sclera ENT: normocephalic atraumatic, no oropharyngeal lesions Neck: supple, symmetric, no JVD Respiratory: CTAB, no wheezes, no rales Cardiovascular: RRR, no murmur, no gallops Gastrointestinal: soft, non-tender, non-distended Extremities: no cyanosis Problem (1) Dementia Code(s): F03.90 - UNSPECIFIED DEMENTIA WITHOUT BEHAVIORAL DISTURBANCE Status: Acute (2) Seizure-like activity Code(s): R56.9 - UNSPECIFIED CONVULSIONS Status: Acute (3) Dehydration Code(s): E86.0 - DEHYDRATION Status: Acute (4) Orthostasis Code(s): I95.1 - ORTHOSTATIC HYPOTENSION Status: Acute (5) Hypertension Code(s): I10 - ESSENTIAL (PRIMARY) HYPERTENSION Status: Acute (6) Hypokalemia Code(s): E87.6 - HYPOKALEMIA Status: Acute Time Spent in discharge related activities (mins): 45 Plan Home Medications: Medication Instructions Recorded Confirmed Type Lamotrigine [lamoTRIgine] 100 mg PO DAILY 12/23/20 12/23/20 History Amlodipine [Norvasc] 2.5 mg PO HS tab 12/28/20 Rx Magnesium Oxide 400 mg PO BID tab 12/28/20 Rx Midodrine HCl [ProAmatine] 2.5 mg PO TID tab 12/28/20 Rx OLANZapine [ZyPREXA] 5 mg PO HS tab 12/28/20 Rx Potassium Chloride [K-Dur] 40 meq PO 0900 tab 12/28/20 Rx QUEtiapine Fumarate [SEROquel] 25 mg PO HS tab 12/28/20 Rx Allergies: No Known Drug Allergies Allergy (Unverified 12/23/20 00:53) Referrals: Unknown,Unknown [Primary Care Provider] - Disposition: REHABILITATION INPATIENT Quality CORE MEASURES:: N/A
--- NOTE | 2020-12-28 22:16 | PDOC.HOSPP ---
- Subjective Encounter Date: 12/28/20 Subjective: feels well - Objective Vital Signs & Weight: Vital Signs (12 hours) Temp Pulse Pulse Pulse Resp BP BP 12/28/20 20:00 98.3 F 86 20 12/28/20 15:40 98.4 F 80 16 12/28/20 13:52 81 92 133/77 152/80 H 12/28/20 11:45 98.6 F 85 18 BP BP Pulse Ox 12/28/20 20:00 152/76 H 96 12/28/20 15:40 167/74 H 96 12/28/20 13:52 12/28/20 11:45 159/90 H 95 Weight Weight 140 lb I&O: 12/27/20 12/28/20 12/29/20 06:59 06:59 06:59 Intake Total 350 150 Output Total 700 400 600 Balance -350 -250 -600 Result Diagrams: 12/26/20 04:50 12/28/20 06:19 Hospitalist ROS - Medication Medications: Active Medications Generic Name Dose Route Start Last Admin Trade Name Freq PRN Reason Stop Dose Admin Acetaminophen 650 mg 12/23/20 00:12 12/27/20 21:04 Acetaminophen 325 Mg Tab PO 650 mg Q4H PRN Administration Headache/Fever/Mild Pain (1-3) Amlodipine Besylate 2.5 mg 12/25/20 21:00 12/27/20 21:04 Amlodipine 5 Mg Tab PO 2.5 mg HS QUENTIN Administration Enoxaparin Sodium 40 mg 12/23/20 09:00 12/28/20 10:43 Enoxaparin Sodium 40 Mg/0.4 Ml Syringe SC 40 mg 0900 QUENTIN Administration Hydralazine HCl 5 mg 12/24/20 13:14 12/26/20 12:36 Hydralazine 20 Mg/Ml Vial SLOW IVP 5 mg Q6H PRN Administration Hypertension Lamotrigine 100 mg 12/24/20 09:00 12/28/20 10:44 Lamotrigine 100 Mg Tab PO 100 mg DAILY QUENTIN Administration Lorazepam 0.5 mg 12/25/20 15:40 12/25/20 16:23 Lorazepam 2 Mg/Ml Vial SLOW IVP 0.5 mg Q6H PRN Administration Anxiety/Agitation Magnesium Oxide 400 mg 12/25/20 21:00 12/28/20 10:44 Magnesium Oxide 400 Mg Tab PO 400 mg BID QUENTIN Administration Midodrine 2.5 mg 12/26/20 21:00 12/28/20 18:00 Midodrine Hcl 5 Mg Tab PO 2.5 mg TID QUENTIN Administration Olanzapine 5 mg 12/23/20 21:00 12/27/20 21:05 Olanzapine 5 Mg Tab PO 5 mg HS QUENTIN Administration Potassium Chloride 40 meq 12/23/20 01:00 12/23/20 07:27 Potassium Chloride 20 Meq Tab PO 12/23/20 04:00 Not Given NOW QUENTIN Potassium Chloride 40 meq 12/26/20 09:00 12/28/20 10:44 Potassium Chloride 20 Meq Tab PO 40 meq 0900 QUENTIN Administration Quetiapine Fumarate 25 mg 12/25/20 21:00 12/27/20 21:07 Quetiapine Fumarate 25 Mg Tab PO 25 mg HS QUENTIN Administration Sodium Chloride 10 ml 12/24/20 09:00 12/28/20 10:44 Flush - Normal Saline 10 Ml Syringe IVF 10 ml Q12HR QUENTIN Administration Hospitalist Exam Vitals: Vital Signs (12 hours) Temp Pulse Pulse Pulse Resp BP BP 12/28/20 20:00 98.3 F 86 20 12/28/20 15:40 98.4 F 80 16 12/28/20 13:52 81 92 133/77 152/80 H 12/28/20 11:45 98.6 F 85 18 BP BP Pulse Ox 12/28/20 20:00 152/76 H 96 12/28/20 15:40 167/74 H 96 12/28/20 13:52 12/28/20 11:45 159/90 H 95 Weight Weight 140 lb General Appearance: NAD Eye: PERRL, anicteric sclera ENT: normocephalic atraumatic Neck: supple, symmetric Heart: RRR Hosp A/P (1) Dementia Code(s): F03.90 - UNSPECIFIED DEMENTIA WITHOUT BEHAVIORAL DISTURBANCE Status: Acute (2) Seizure-like activity Code(s): R56.9 - UNSPECIFIED CONVULSIONS Status: Acute (3) Dehydration Code(s): E86.0 - DEHYDRATION Status: Acute (4) Orthostasis Code(s): I95.1 - ORTHOSTATIC HYPOTENSION Status: Acute (5) Hypertension Code(s): I10 - ESSENTIAL (PRIMARY) HYPERTENSION Status: Acute (6) Hypokalemia Code(s): E87.6 - HYPOKALEMIA Status: Acute - Plan plan for today 12/23 I reviewed [facility] records, patient had labile hypertension and orthostasit hypotension, she was started on HCTZ and spironolactone, on admission her cr was up and now normalizing but still hypokalemia, she remains orthostatic, will continue hydrating her and recheck her labs in am.I did replace her K. will make further adjustments as per her clinical progression. I will resume her lamictal and zyprexa as she was on those in the care home. Her trop indicating most likely demand ischemia, will recheck in am. plan for today 12/24 seems that patient was her on 12/06/20 for similar presentation and did well on amlodipine 2.5 mg, but when at rehab more meds were added, I plan to start her on Toprol XL today and amlodipine tomorrow and see how she does as her BP still very elevated when lying flat and drops by 15 mmhg when sitting up, so I will target a SBP of around 160 lying down. we still replenishing her K and Mg. her last echocardiogram showed and EF of 65-70 % and LVH. I will stop her IVF since she is eating ok. plan for today 2 overnight ( as per RN ) she was agitated, always asking for water.I will add Seroquel at HS for agitation. we measured her vitals and her SBP dropped from 163 ( laying flat ) to 125 ( sitting ) to 71 ( standing ), when she was standing she became dizzy, I plan to stop Toprol and start her Norvasc at night instead of the day. will ask PT to see her and use a binder with ambulation. Her trop has been always indeterminate even during her previous admission, most likely demand ischemia. I will start her on daily dose of K and magnesium as they are always low. plan for today 2 she remains orthostatic but to a lesser extent. 178/77 154/83 102/56 I will start her on a low dose midodrine and see how she does with that. plan for today 2 her orthostasis is better with midodrine, when she stood up her SBP was 120 and she did not feel dizzy. She is on a daily dose of K, will recheck it in am and adjust. will continue same management awaiting that we find a placement for her. plan for today 12/28 patient was supposed to be discharged but [facility] did not have a sitter, D/C will happen in am.
[2020-12-28] MEDS: OLANZapine 5 MG TAB PO SCH (22:44)
[2020-12-28] MEDS: Amlodipine 5 MG TAB PO SCH (22:45)
[2020-12-29] MEDS: Enoxaparin Sodium 40 MG/0.4 ML SYRINGE SC SCH (11:15)
[2020-12-29] MEDS: Magnesium Oxide 400 MG TAB PO SCH ×2 (11:15→21:38)
[2020-12-29] MEDS: lamoTRIgine 100 MG TAB PO SCH (11:16)
[2020-12-29] MEDS: Midodrine HCl 5 MG TAB PO SCH ×2 (11:16→15:33)
[2020-12-29] MEDS: Potassium Chloride 20 MEQ TAB PO SCH (11:16)
[2020-12-29] MEDS: Acetaminophen 325 MG TAB PO PRN (11:17)
--- NOTE | 2020-12-29 17:34 | PDOC.HOSPP ---
- Subjective Encounter Date: 12/29/20 Subjective: She continues to do well in no acute distress. - Objective Vital Signs & Weight: Vital Signs (12 hours) Temp Pulse Resp BP BP BP BP 12/29/20 15:55 97.7 F 16 L 16 136/71 12/29/20 08:00 98.3 F 73 18 148/70 H 116/61 181/82 H 12/29/20 07:30 98.3 F 68 18 142/71 H Pulse Ox 12/29/20 15:55 100 12/29/20 08:00 97 12/29/20 07:30 97 Weight Weight 140 lb I&O: 12/28/20 12/29/20 12/30/20 06:59 06:59 06:59 Intake Total 150 400 Output Total 400 600 500 Balance -250 -200 -500 Result Diagrams: 12/26/20 04:50 12/28/20 06:19 Hospitalist ROS - Medication Medications: Active Medications Generic Name Dose Route Start Last Admin Trade Name Freq PRN Reason Stop Dose Admin Acetaminophen 650 mg 12/23/20 00:12 12/29/20 11:17 Acetaminophen 325 Mg Tab PO 650 mg Q4H PRN Administration Headache/Fever/Mild Pain (1-3) Amlodipine Besylate 2.5 mg 12/25/20 21:00 12/28/20 22:45 Amlodipine 5 Mg Tab PO 2.5 mg HS QUENTIN Administration Enoxaparin Sodium 40 mg 12/23/20 09:00 12/29/20 11:15 Enoxaparin Sodium 40 Mg/0.4 Ml Syringe SC 40 mg 0900 QUENTIN Administration Hydralazine HCl 5 mg 12/24/20 13:14 12/26/20 12:36 Hydralazine 20 Mg/Ml Vial SLOW IVP 5 mg Q6H PRN Administration Hypertension Lamotrigine 100 mg 12/24/20 09:00 12/29/20 11:16 Lamotrigine 100 Mg Tab PO 100 mg DAILY QUENTIN Administration Lorazepam 0.5 mg 12/25/20 15:40 12/25/20 16:23 Lorazepam 2 Mg/Ml Vial SLOW IVP 0.5 mg Q6H PRN Administration Anxiety/Agitation Magnesium Oxide 400 mg 12/25/20 21:00 12/29/20 11:15 Magnesium Oxide 400 Mg Tab PO 400 mg BID QUENTIN Administration Midodrine 2.5 mg 12/26/20 21:00 12/29/20 15:33 Midodrine Hcl 5 Mg Tab PO 2.5 mg TID QUENTIN Administration Olanzapine 5 mg 12/23/20 21:00 12/28/20 22:44 Olanzapine 5 Mg Tab PO 5 mg HS QUENTIN Administration Potassium Chloride 40 meq 12/23/20 01:00 12/23/20 07:27 Potassium Chloride 20 Meq Tab PO 12/23/20 04:00 Not Given NOW QUENTIN Potassium Chloride 40 meq 12/26/20 09:00 12/29/20 11:16 Potassium Chloride 20 Meq Tab PO 40 meq 0900 QUENTIN Administration Quetiapine Fumarate 25 mg 12/25/20 21:00 12/28/20 22:45 Quetiapine Fumarate 25 Mg Tab PO 25 mg HS QUENTIN Administration Sodium Chloride 10 ml 12/24/20 09:00 12/29/20 11:17 Flush - Normal Saline 10 Ml Syringe IVF 10 ml Q12HR QUENTIN Administration Hospitalist Exam Vitals: Vital Signs (12 hours) Temp Pulse Resp BP BP BP BP 12/29/20 15:55 97.7 F 16 L 16 136/71 12/29/20 08:00 98.3 F 73 18 148/70 H 116/61 181/82 H 12/29/20 07:30 98.3 F 68 18 142/71 H Pulse Ox 12/29/20 15:55 100 12/29/20 08:00 97 12/29/20 07:30 97 Weight Weight 140 lb Eye: PERRL ENT: normocephalic atraumatic Neck: supple, symmetric Heart: RRR, no murmur Respiratory: CTAB, no wheezes Gastrointestinal: non-tender Hosp A/P (1) Dementia Code(s): F03.90 - UNSPECIFIED DEMENTIA WITHOUT BEHAVIORAL DISTURBANCE Status: Acute (2) Seizure-like activity Code(s): R56.9 - UNSPECIFIED CONVULSIONS Status: Acute (3) Dehydration Code(s): E86.0 - DEHYDRATION Status: Acute (4) Orthostasis Code(s): I95.1 - ORTHOSTATIC HYPOTENSION Status: Acute (5) Hypertension Code(s): I10 - ESSENTIAL (PRIMARY) HYPERTENSION Status: Acute (6) Hypokalemia Code(s): E87.6 - HYPOKALEMIA Status: Acute - Plan plan for today 2/3 I reviewed [facility] records, patient had labile hypertension and orthostasit hypotension, she was started on HCTZ and spironolactone, on admission her cr was up and now normalizing but still hypokalemia, she remains orthostatic, will continue hydrating her and recheck her labs in am.I did replace her K. will make further adjustments as per her clinical progression. I will resume her lamictal and zyprexa as she [facility]. Her trop indicating most likely demand ischemia, will recheck in am. plan for today 12/24 seems that patient was her on 12/06/20 for similar presentation and did well on amlodipine 2.5 mg, but when at rehab more meds were added, I plan to start her on Toprol XL today and amlodipine tomorrow and see how she does as her BP still very elevated when lying flat and drops by 15 mmhg when sitting up, so I will target a SBP of around 160 lying down. we still replenishing her K and Mg. her last echocardiogram showed and EF of 65-70 % and LVH. I will stop her IVF since she is eating ok. plan for today 12/25 overnight ( as per RN ) she was agitated, always asking for water.I will add Seroquel at HS for agitation. we measured her vitals and her SBP dropped from 163 ( laying flat ) to 125 ( sitting ) to 71 ( standing ), when she was standing she became dizzy, I plan to stop Toprol and start her Norvasc at night instead of the day. will ask PT to see her and use a binder with ambulation. Her trop has been always indeterminate even during her previous admission, most likely demand ischemia. I will start her on daily dose of K and magnesium as they are always low. plan for today 2 she remains orthostatic but to a lesser extent. 178/77 154/83 102/56 I will start her on a low dose midodrine and see how she does with that. plan for today 12/27 her orthostasis is better with midodrine, when she stood up her SBP was 120 and she did not feel dizzy. She is on a daily dose of K, will recheck it in am and adjust. will continue same management awaiting that we find a placement for her. plan for today 12/28 patient was supposed to be discharged but [facility] did not have a sitter, D/C will happen in am. Plan for today 12/29 Patient continues to do well, rehabilitation unable to provide a one-to-one set and for that reason she stayed in the hospital, hopefully tomorrow she will be discharged, for further details please see my discharge summary.
[2020-12-29] MEDS: OLANZapine 5 MG TAB PO SCH (21:38)
[2020-12-29] MEDS: Amlodipine 5 MG TAB PO SCH (21:45)
[2020-12-30] MEDS: hydrALAZINE 20 MG/ML VIAL SLOW IVP PRN ×2 (00:07→11:52)
[2020-12-30] MEDS: Midodrine HCl 5 MG TAB PO SCH ×2 (04:55→09:48)
[2020-12-30] MEDS: Enoxaparin Sodium 40 MG/0.4 ML SYRINGE SC SCH (09:40)
[2020-12-30] MEDS: lamoTRIgine 100 MG TAB PO SCH (09:40)
[2020-12-30] MEDS: Magnesium Oxide 400 MG TAB PO SCH (09:40)
[2020-12-30] MEDS: Potassium Chloride 20 MEQ TAB PO SCH (09:40)
[2020-12-30 12:40] VITALS: TEMP 98
--- NOTE | 2020-12-30 12:52 | PDOC.HOSPP ---
- Subjective Encounter Date: 12/30/20 Encounter Time: 09:00 Subjective: Patient seen and examined. No new complaints. No overnight events - Objective Vital Signs & Weight: Vital Signs (12 hours) Temp Pulse Resp BP BP BP BP 12/30/20 11:52 88 12/30/20 11:39 98.0 F 83 20 195/92 H 12/30/20 11:20 187/84 H 107/59 L 199/90 H 12/30/20 08:10 97.8 F 88 16 124/57 L 12/30/20 05:30 97.7 F 70 16 144/64 H Pulse Ox 12/30/20 11:52 12/30/20 11:39 97 12/30/20 11:20 12/30/20 08:10 96 12/30/20 05:30 96 Weight Weight 140 lb I&O: 12/29/20 12/30/20 12/31/20 06:59 06:59 06:59 Intake Total 400 620 Output Total 600 1950 Balance -200 -1330 Result Diagrams: 12/26/20 04:50 12/28/20 06:19 Radiology Reviewed by me: Yes EKG Reviewed by me: Yes Hospitalist ROS - Review of Systems ENT: denies: ear pain, ear discharge, nose pain, nose discharge, nose congestion, mouth pain, mouth swelling, throat pain, throat swelling, other Respiratory: denies: cough, dry, shortness of breath, hemoptysis, SOB with excertion, pleuritic pain, sputum, wheezing, other Cardiovascular: denies: chest pain, palpitations, orthopnea, paroxysmal noc. dyspnea, edema, light headedness, other Gastrointestinal: denies: nausea, vomiting, abdominal pain, diarrhea, constipation, melena, hematochezia, other Genitourinary: denies: dysuria, frequency, incontinence, hematuria, retention, other Musculoskeletal: denies: neck pain, shoulder pain, arm pain, back pain, hand pain, leg pain, foot pain, other - Medication Medications: Active Medications Generic Name Dose Route Start Last Admin Trade Name Freq PRN Reason Stop Dose Admin Acetaminophen 650 mg 12/23/20 00:12 12/29/20 11:17 Acetaminophen 325 Mg Tab PO 650 mg Q4H PRN Administration Headache/Fever/Mild Pain (1-3) Amlodipine Besylate 2.5 mg 12/25/20:00 12/29/20 21:45 Amlodipine 5 Mg Tab PO 2.5 mg HS QUENTIN Administration Enoxaparin Sodium 40 mg 12/23/20 09:00 12/30/20 09:40 Enoxaparin Sodium 40 Mg/0.4 Ml Syringe SC 40 mg 0900 QUENTIN Administration Hydralazine HCl 5 mg 12/24/20 13:14 12/30/20 11:52 Hydralazine 20 Mg/Ml Vial SLOW IVP 5 mg Q6H PRN Administration Hypertension Lamotrigine 100 mg 12/24/20 09:00 12/30/20 09:40 Lamotrigine 100 Mg Tab PO 100 mg DAILY QUENTIN Administration Lorazepam 0.5 mg 12/25/20 15:40 12/25/20 16:23 Lorazepam 2 Mg/Ml Vial SLOW IVP 0.5 mg Q6H PRN Administration Anxiety/Agitation Magnesium Oxide 400 mg 12/25/20 21:00 12/30/20 09:40 Magnesium Oxide 400 Mg Tab PO 400 mg BID QUENTIN Administration Midodrine 2.5 mg 12/26/20 21:00 12/30/20 09:48 Midodrine Hcl 5 Mg Tab PO Not Given TID QUENTIN Olanzapine 5 mg 12/23/20 21:00 12/29/20 21:38 Olanzapine 5 Mg Tab PO 5 mg HS QUENTIN Administration Potassium Chloride 40 meq 12/23/20 01:00 12/23/20 07:27 Potassium Chloride 20 Meq Tab PO 12/23/20 04:00 Not Given NOW QUENTIN Potassium Chloride 40 meq 12/26/20 09:00 12/30/20 09:40 Potassium Chloride 20 Meq Tab PO 40 meq 0900 QUENTIN Administration Quetiapine Fumarate 25 mg 12/25/20 21:00 12/29/20 21:37 Quetiapine Fumarate 25 Mg Tab PO 25 mg HS QUENTIN Administration Sodium Chloride 10 ml 12/24/20 09:00 12/30/20 09:42 Flush - Normal Saline 10 Ml Syringe IVF 10 ml Q12HR QUENTIN Administration Hospitalist Exam Vitals: Vital Signs (12 hours) Temp Pulse Resp BP BP BP BP 12/30/20 11:52 88 12/30/20 11:39 98.0 F 83 20 195/92 H 12/30/20 11:20 187/84 H 107/59 L 199/90 H 12/30/20 08:10 97.8 F 88 16 124/57 L 12/30/20 05:30 97.7 F 70 16 144/64 H Pulse Ox 12/30/20 11:52 12/30/20 11:39 97 12/30/20 11:20 12/30/20 08:10 96 12/30/20 05:30 96 Weight Weight 140 lb General Appearance: NAD, awake alert Eye: PERRL, anicteric sclera ENT: normocephalic atraumatic, no oropharyngeal lesions Neck: supple, symmetric, no JVD Heart: RRR, no murmur, no gallops, no rubs Respiratory: no wheezes, no rales, no ronchi Gastrointestinal: soft, non-tender, non-distended, normal bowel sounds Extremities: no cyanosis, no clubbing Skin: normal turgor, no lesions Neurological: no focal deficits Musculoskeletal: normal tone, normal strength Psychiatric: normal affect, normal behavior Hosp A/P (1) Dehydration Code(s): E86.0 - DEHYDRATION Status: Acute (2) Dementia Code(s): F03.90 - UNSPECIFIED DEMENTIA WITHOUT BEHAVIORAL DISTURBANCE Status: Acute (3) Hypertension Code(s): I10 - ESSENTIAL (PRIMARY) HYPERTENSION Status: Acute (4) Hypokalemia Code(s): E87.6 - HYPOKALEMIA Status: Acute (5) Orthostasis Code(s): I95.1 - ORTHOSTATIC HYPOTENSION Status: Acute (6) Seizure-like activity Code(s): R56.9 - UNSPECIFIED CONVULSIONS Status: Acute - Plan old records reviewed/req, clinical social work aide Patient is stable, patient is waiting for rehab placement, pending bed available Please see discharge summary dictated already day before
[2020-12-30 15:08] VITALS: BP 128/74
--- NOTE | 2020-12-30 16:58 | PDOC.DS.DS ---
Provider Date of Admission: 12/23/20 13:37 Date of Discharge: 12/30/20 Admitting Provider: Francesco Singh MD Primary Care Physician: Unknown Course Hospital Course: This is a 75-year-old female patient with a history of cholecystitis, who presents with falls and near syncope with hypotension. She was brought in from [facility] where she was discharged today. Of note patient was recently admitted here and [facility]. Patient had no complaints at the time of evaluation. She was oriented only to self however was not in acute distress. At presentation her blood pressure was 177/87, pulse 72, respirate 20, temperature 98.4 and saturation 94 on room air. Urinalysis was generally negative. Sodium was 129, potassium was 3.0, creatinine was 1.45, glucose 127 troponin was 0.18. WBC showed leukocytosis of 12.5 otherwise unremarkable. She received potassium chloride 20 mEq normal saline 1 L and Ativan. Arrangements were being made to have her transition to rehab however she cannot be seen but because she was recently discharged and needed to be reprocessed. Decision was made for her to be admitted and replaced. During her stay she was restarted on Norvasc and Toprol but she remained o rthostatic and was very symptomatic when she stands up with a systolic of around 100 she feels that she is dizzy, at some point she had erratic behavior so she was restarted on olanzapine and she was started on Seroquel, she required as needed Ativan. She remained orthostatic so Toprol was stopped Norvasc was reduced and midodrine was added, this helped her blood pressure quite a bit, she is a person who will have a high blood pressure while laying in bed but drops significantly when she stands up, the goal is to have her blood pressure as managed as possible which for the past 24 hours laying flat on her back her blood pressure has been around systolic of 150-1 60 when she stands up it drops to 124 and she is not symptomatic with that, with those numbers when she goes back to inpatient rehab she would not have episodes of syncope or near syncope. I recommended her having a binder when she stands up also stocking hose to prevent significant drop in her blood pressure as an added precautionary measure On a daily basis her potassium was low so she was started on a maintenance dose of potassium. Initially her troponin was abnormal, I did review her previous admissions and her troponin was always abnormal, most likely this is due to demand ischemia, she was monitored on telemetry during all her stay. Patient has been stable for the past 24 hours I will release her to inpatient rehab. Lab Results: 12/26/20 04:50 12/28/20 06:19 Microbiology - Entire Visit 12/22/20 20:33 Venous blood - Left Arm Blood Culture - Final NO GROWTH IN 5 DAYS 12/22/20 20:33 Venous blood - Right Hand Blood Culture - Final NO GROWTH IN 5 DAYS 12/22/20 20:44 Urine Straight Catheter Urine Culture - Final NO GROWTH AT 36 HOURS Vitals: Vital Signs (12 hours) Temp Pulse Resp BP BP BP BP 12/30/20 13:50 128/74 12/30/20 11:52 88 12/30/20 11:39 98.0 F 83 20 195/92 H 12/30/20 11:20 187/84 H 107/59 L 199/90 H 12/30/20 08:10 97.8 F 88 16 124/57 L 12/30/20 05:30 97.7 F 70 16 144/64 H Pulse Ox 12/30/20 13:50 12/30/20 11:52 12/30/20 11:39 97 12/30/20 11:20 12/30/20 08:10 96 12/30/20 05:30 96 Weight Weight 140 lb Physical Exam: The patient was seen and examined on the day of discharge. General Appearance: NAD, awake alert Eye: PERRL, anicteric sclera ENT: normocephalic atraumatic, no oropharyngeal lesions Neck: supple, symmetric, no JVD, no thyromegaly Respiratory: CTAB, no wheezes, no rales, no ronchi Cardiovascular: RRR, no murmur, no gallops, no rubs Gastrointestinal: soft, non-tender, non-distended, no bruit Extremities: no cyanosis, no clubbing Skin: normal turgor, no lesions Neurological: no focal deficits Musculoskeletal: normal tone, normal strength PSYCH: normal affect, normal behavior Problem (1) Dehydration Code(s): E86.0 - DEHYDRATION Status: Acute (2) Dementia Code(s): F03.90 - UNSPECIFIED DEMENTIA WITHOUT BEHAVIORAL DISTURBANCE Status: Acute (3) Hypertension Code(s): I10 - ESSENTIAL (PRIMARY) HYPERTENSION Status: Acute (4) Hypokalemia Code(s): E87.6 - HYPOKALEMIA Status: Acute (5) Orthostasis Code(s): I95.1 - ORTHOSTATIC HYPOTENSION Status: Acute (6) Seizure-like activity Code(s): R56.9 - UNSPECIFIED CONVULSIONS Status: Acute Plan Home Medications: Medication Instructions Recorded Confirmed Type Lamotrigine [lamoTRIgine] 100 mg PO DAILY 12/23/20 12/23/20 History Amlodipine [Norvasc] 2.5 mg PO HS tab 12/28/20 Rx Magnesium Oxide 400 mg PO BID tab 12/28/20 Rx Midodrine HCl [ProAmatine] 2.5 mg PO TID tab 12/28/20 Rx OLANZapine [ZyPREXA] 5 mg PO HS tab 12/28/20 Rx Potassium Chloride [K-Dur] 40 meq PO 0900 tab 12/28/20 Rx QUEtiapine Fumarate [SEROquel] 25 mg PO HS tab 12/28/20 Rx Allergies: No Known Drug Allergies Allergy (Verified 12/30/20 05:14) Penicillins Allergy (Verified 12/30/20 05:14) Activity:: Activity as Tolerated Nourishment:: Heart Healthy Diet Therapies:: Occupational Therapy, Physical Therapy Equipment/Supplies:: Not Applicable IV Therapy:: Not Applicable Referrals: Unknown,Unknown [Primary Care Provider] - Disposition: REHABILITATION INPATIENT Quality CORE MEASURES:: N/A
== END 2020-12-30 14:30 | DRG 312 ==
LOC: ERS 19:18 → ERHOLD 22:41 → 2SW 12-23 00:54 → OBSVTOIN 12-23 13:37
PROVIDERS: ADMIT Student in an Organized Health Care Education/Training Program; ATTEND Internal Medicine
DX: I95.1 Orthostatic hypotension (principal); I24.8 Other forms of acute ischemic heart disease; F03.91 Unspecified dementia, unspecified severity, with behavioral disturbance; Z20.822 Contact with and (suspected) exposure to COVID-19; E86.0 Dehydration; I10 Essential (primary) hypertension; E87.6 Hypokalemia; R56.9 Unspecified convulsions; Z79.899 Other long term (current) drug therapy; Z90.49 Acquired absence of other specified parts of digestive tract; Z87.891 Personal history of nicotine dependence
CPT/HCPCS: 36415; 51701; 71045; 80048; 81003; 82550; 82553; 83605; 83735; 84132; 84484; 85025; 87040; 87086; 87635; 93005; 96372; 96374; G0378; J0360; J1650; J2060; J3475; J3480; J7050; U0003; U0005